=== PATIENT | female | born 1960 | race American Indian/Alaskan Native ===

== ENCOUNTER 2019-12-08 11:15 | Day surgery (SDC) | payer MEDICAID ==
[~2019-12-08 11:15] MED LIST: SODIUM CHLORIDE 0.9% 1000 ML 1,000 ML IV SCH
[2019-12-08] MEDS ORDERED: LIDOCAINE MPF (2%) 20 MG/1 ML VIAL 5 ML ONE (13:30)
--- NOTE | 2019-12-08 14:00 | Discharge Summary ---
Short Stay Discharge Plan Activity: advance as tolerated Weight Bearing Status: Weight Bear as Tolerated Diet: regular Follow up with: TING HARRISON MD [Primary Care Provider] - 7 Days
--- NOTE | 2019-12-08 14:00 | Operative Report ---
Operative Report Operative Report: Procedure: Colonoscopy Attending physician: Agusto Calles M.D. Edge Blacker: Agusto Calles M.D. Indication: Patient is a 59-year-old female who presents for screening colonoscopy. This colonoscopy serves to evaluate patient so that treatment may be directed based on the findings. Consent: Informed consent was obtained after advising the patient and family regarding nature of this procedure, its indications, potential benefits as well as possible complications including but not limited to bleeding perforation and adverse reaction to medication, infection as well as other cardiopulmonary complications. An informed written and verbal consent was then obtained after due opportunity was provided for questions and answers. Monitoring: Patient was monitored continuously with pulse oximetry and electrocardiographic recordings as well as blood pressure recordings. Vital signs remained stable throughout this procedure with no untoward events. Preoperative assessment: Patient was assessed immediately prior to this procedure for capacity to tolerate monitored anesthesia care and moderate sedati on as well as general anesthesia. Patient's ASA classification is 2, Mallampati class is 2, Hyomental distance is 3. Instrument: Olympus video colonoscope.: CF-HQ 190L Medications: Propofol given intravenously in divided doses. For details please refer to anesthesia records. Description of procedure: Patient was placed in the left lateral decubitus position after achieving sedation, a digital rectal examination was performed following which the colonoscope was introduced into the anal verge and advanced to the cecum which was identified by the cecal valve, the appendiceal orifice, as well as by the cecal strap and direct transillumination. The colonoscope was subsequently withdrawn with careful inspection of all mucosal surfaces. Patient tolerated this procedure well and was subsequently taken to the recovery room. The following findings were noted. Findings: The preparation was adequate. The Aurora prep scale score was 6 . Patient had a few scattered diverticula in the sigmoid colon and in the descending colon. The entirety of the colon otherwise was normal. On the retroflexed at the anal verge, patient had internal hemorrhoids. Impression: Diverticular disease of the sigmoid colon. Internal hemorrhoids. Plan: High-fiber diet. Consider repeat colonoscopy in 10 years.
[2019-12-08] MEDS ORDERED: PROPOFOL 200 MG/20 ML VIAL IV ONE (14:04)
[2019-12-08] MEDS ORDERED: WATER FOR IRRIG STERILE 250 ML BOTTLE IR ONE (14:05)
--- NOTE | 2019-12-08 14:09 | Anesthesia Consultation ---
Anesthesia Consult and Med Hx Date of service: 12/08/19 - Airway Anesthetic Teeth Evaluation: Edentulous ROM Head & Neck: Adequate Mental/Hyoid Distance: Adequate Mallampati Class: Class III Intubation Access Assessment: Possibly Difficult - Pulmonary Exam CTA: Yes - Cardiac Exam Cardiac Exam: RRR - Pre-Operative Health Status ASA Pre-Surgery Classification: ASA3 Proposed Anesthetic Plan: MAC - Pulmonary Hx Asthma: Yes (daily inhalers) Hx Respiratory Symptoms: Yes (daily; resolves with inhaler use) Home Oxygen Therapy: No - Cardiovascular System Hx Hypertension: Yes (took antihypertensives today) Hx Heart Attack/AMI: No Hx Percutaneous Transluminal Coronary Angioplasty (PTCA): No - Central Nervous System CVA: No (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
--- NOTE | 2019-12-08 14:10 | Anesthesia Day of Surgery ---
Anesthesia Day of Surgery - Day of Surgery Patient Examined: Yes Patient H&P Reviewed: Yes Patient is NPO: Yes
--- NOTE | 2019-12-08 14:18 | Post Anesthesia Evaluation ---
- Post Anesthesia Evaluation Patient Participated: Yes Airway Patent: Yes Stable Respiratory Function: Yes Nausea/Vomiting: No Temp > 96.8F: Yes Pain Manageable: Yes Adequeate Hydration: Yes Anesthesia Complications: No Block Receding Appropriately: Not Applicable Patient on Ventilator: No
[2019-12-08 15:11] VITALS: BP 113/79
== END 2019-12-08 11:16 | disposition home or self-care (01) ==
LOC: GIO 11:15
PROVIDERS: ATTEND Internal Medicine Gastroenterology
DX: K59.00 Constipation, unspecified (principal); K57.30 Diverticulosis of large intestine without perforation or abscess without bleeding; K64.8 Other hemorrhoids; I10 Essential (primary) hypertension; J45.909 Unspecified asthma, uncomplicated; Z91.041 Radiographic dye allergy status; Z79.899 Other long term (current) drug therapy; Z87.891 Personal history of nicotine dependence
CPT/HCPCS: 45378; J2704; J7030